=== PATIENT | female | born 1970 | race Caucasian/White ===

== ENCOUNTER 2016-05-27 16:27 | Emergency (ER) | payer MEDICARE ==
[2016-05-27 18:04] LABS: #Basophils 0.3 thou/uL (0.0-0.2); #Eosinphils 0.7 thou/uL (0.0-0.7); #Lymphocytes 3.5 thou/uL (1.20-3.40); #Neutrophils 3.7 thou/uL (1.40-6.50); %Basophils 2.9 % (0.0-1.0); %Eosinophils 7.4 % (0.0-10.0); %Lymphocytes 37.7 % (21.0-51.0); %Monocytes 11.4 % (0.0-10.0); Hematocrit 41.1 % (36.0-47.0); Mean Platelet Volume 6.8 fL (7.4-10.4); Red Blood Cell (RBC) Count 4.12 mill/uL (4.20-5.40); White Blood Cell (WBC) Count 9.1 thou/uL (4.8-10.8)
[2016-05-27 18:26] LABS: ALT (SGPT) 16 U/L (0-55); AST (SGOT) 27 U/L (5-34); Alkaline Phosphatase 75 U/L (40-150); Anion Gap 16 mmol/L (10-20); BUN (Urea Nitrogen) 10 mg/dL (7.0-18.7); Bilirubin, Total 0.3 mg/dL (0.2-1.2); Calc. Creatinine Clearance 0 mL/min (70-130); Calcium 9.5 mg/dL (7.8-10.44); Carbon Dioxide 26 mmol/L (22-29); Chloride 103 mmol/L (98-107); Estimated GFR-MDRD 65; Globulin 2.5 g/dL (2.4-3.5); Protein, Total 6.4 g/dL (6.0-8.3)
[2016-05-27 18:27] LABS: Methadone Not Detected (NotDetected); Methamphetamine Detected (NotDetected)
[2016-05-27 18:28] LABS: Acetaminophen Less than 3.0 mcg/mL (10.0-30.0); Salicylate Less than 5.0 mg/dL (15.0-30.0)
[2016-05-27] MEDS ORDERED: Ibuprofen 800 MG TAB ONE (19:18)
--- NOTE | 2016-05-27 21:15 | ERRECORD ---
[facility] EMERGENCY RECORD ADMIN (18:46 REZE) MERGE: Ambulance Mon May 27, 2016 16:16. HPI PSYCHIATRIC (17:50 JLOY) CHIEF COMPLAINT: Patient presents for evaluation of suicidal ideation, Patient presents for evaluation of Pt reports depression and SI. Sent over from [facility] via EMS. Initially they thought her BP was low but EMS got a normal reading. Pt admits to daily SI but won't share any details about whether she has a plan. Pt reports she doesn't think she will commit suicide but says she is under alot of stress with her at home. Pt reports she tripped and fell last pm and 'hurts all over'. Pt reports she has a history of chronic pain and is on disability and gets injections for chronic back pain. HISTORIAN: History provided by patient, Additional history obtained from EMS. LOCATION: Symptoms are generalized. ASSOCIATED WITH: No associated aggressive behavior, Associated with depression, Associated with family problems, No associated homicidal ideations, No suicide attempt, Associated with suicidal thoughts, constant. EXACERBATED BY: Patient's condition exacerbated by family stress, Patient's condition exacerbated by relationship stress. RELIEVED BY: Patient's condition relieved by nothing. RISK FACTORS: Suicide risk factors:, previous suicide attempts, previous inpatient psychiatric admissions. ROS (17:53 JLOY) CONSTITUTIONAL: Historian denies chills, denies fever. ENT: Historian reports rhinorrhea, denies sore throat. RESPIRATORY: Historian denies cough, denies shortness of breath. GI: Historian denies abdominal pain, denies diarrhea, reports nausea, denies vomiting. GENITOURINARY FEMALE: Historian denies dysuria, denies frequency, denies hematuria. MUSCULOSKELETAL: Historian reports back pain. SKIN: Historian denies rash, denies skin changes. NEUROLOGIC: Historian reports dizziness, denies headache, denies paralysis, reports paresthesias. chronic unchanged. PSYCHIATRIC: Historian reports depression, reports suicidal ideation. PAST MEDICAL HISTORY MEDICAL HISTORY: Notes: chronic back pain, Flu vaccine up to date, Tetanus immunization up to date, Pneumococcal vaccine not up to date, Past medical history includes neurological disease, migraine headaches.reviewed 05/27/16. (17:46 REZE) FEMALE SURGICAL HISTORY: states has an implanted tens &a-1R&a+25V*p+0X*[id number]*c202B*c15G*c2P*p-0X&a-25V&a+1R Name: Cristel Perez : 1970 F45 MedRec: [id number] AcctNum: [id number] Prepared: FriMay 27, 2016 22:10 by Interface Page 1 of 4 pMD [facility] EMERGENCY RECORD unit, Surgical history of hysterectomy.reviewed 05/27/16. (17:46 REZE) PSYCHIATRIC HISTORY: Psychiatric history includes history of suicidal ideations, No history of suicide attempts, Psychiatric history includes, bipolar disorder, depression.reviewed 05/27/16. (17:46 REZE) SOCIAL HISTORY: Patient currently uses tobacco, smokes cigarettes, daily, Patient smokes 1 pack per day, Patient currently uses tobacco, Patient smokes cigarettes, Patient drinks socially, twice a month, Patient denies drug use. (17:46 REZE) NOTES: Nursing records reviewed, Agree with nursing records. (17:54 JLOY) KNOWN ALLERGIES No Known Drug Allergies CURRENT MEDICATIONS SEROquel: TABLET : Strength - 100 mg : ORAL Patient Dose: 100 mg Oral once a day (at bedtime). (17:20 REZE) Cymbalta: CAPSULE,DELAYED RELEASE (ENTERIC COATED) : Strength - 60 mg : ORAL Patient Dose: 2 tab(s) Oral once a day (in the morning). (17:22 REZE) Depakote: TABLET, DELAYED RELEASE (ENTERIC COATED) : Strength - 500 mg : ORAL Patient Dose: 3 tab(s) Oral once a day (at bedtime). (17:22 REZE) naproxen: TABLET : Strength - 500 mg : ORAL Patient Dose: 1 tab(s) Oral 2 times a day. (17:22 REZE) Maxalt: TABLET : Strength - 10 mg : ORAL Patient Dose: 1 tab(s) Oral As Needed.X 2. (17:22 REZE) VITAL SIGNS (17:04 REZE) VITAL SIGNS: BP: 140/78, Pulse: 100, Resp: 20, Temp: 95.4 (Oral), Pain: 8, O2 sat: 98, Time: 05/27/2016 17:04. PHYSICAL EXAM CONSTITUTIONAL: Vital Signs Reviewed, Patient appears non toxic, Patient alert and oriented to person, place and time. (17:54 JLOY) EYES: Eye exam included findings of eyelids normal to inspection, Pupils equally round and reactive to light, Conjunctiva normal. (17:54 JLOY) ENT: Ear exam normal, external ear normal, tympanic membranes normal, Pharynx exam normal, Uvula exam normal, Tonsil exam normal, Mouth exam normal, mucous membranes moist. (17:54 JLOY) &a-1R&a+25V*p+0X*[id number]*c202B*c15G*c2P*p-0X&a-25V&a+1R Name: Cristel Perez : 1970 F45 MedRec: [id number] AcctNum: [id number] Prepared: FriMay 27, 2016 22:10 by Interface Page 2 of 4 D [facility] EMERGENCY RECORD NECK: Neck exam included findings of normal range of motion, Trachea midline, no cervical adenopathy. (17:54 JLOY) RESPIRATORY CHEST: Respiratory exam included findings of no respiratory distress, Breath sounds clear, No wheezing, No rales, No rhonchi, Chest exam included findings of chest movement symmetrical. (17:54 JLOY) CARDIOVASCULAR: Cardiovascular exam included findings of heart rate regular rate and rhythm, Heart sounds normal. (17:54 JLOY) ABDOMEN FEMALE: Abdominal exam included findings of abdomen nontender, Bowel sounds normal. (17:54 JLOY) BACK: Back exam included findings of normal inspection, range of motion normal, no tenderness. (17:54 JLOY) UPPER EXTREMITY: Upper extremity exam included findings of inspection normal, Radial pulse normal, no cyanosis, no clubbing, no edema. (17:54 JLOY) LOWER EXTREMITY: Lower extremity exam included findings of inspection normal, Pedal pulse normal, no edema, no calf tenderness. (17:54 JLOY) NEURO: Neuro exam findings include patient oriented to person, place and time, Speech normal, Juan Carlos coma scale 15. (17:54 JLOY) SKIN: Skin exam included findings of skin warm, dry, and normal in color. (17:54 JLOY) Multiple apparent bug bites on the lower extremities. One on her left leg near the knee with some mild swelling and redness. No fluctuance. (22:00 JLOY) PSYCHIATRIC: Affect, colorful, Suicidal ideations present. (17:54 [facility]) MEDICATION ADMINISTRATION SUMMARY Drug Name: ibuprofen, Dose Ordered: 800 mg, Route: Oral, Status: Given, Time: 19:21 05/27/2016, Detailed record available in Medication Service section. PROBLEM LIST No recorded problems DIAGNOSIS (20:59 [facility]) FINAL: PRIMARY: Major depression. PRESCRIPTION (22:00 [facility]) Keflex: CAPSULE : 500 mg : ORAL : Quantity: 500 Unit: mg Route: ORAL Schedule: 2 times a day Dispense: 7 days May substitute. Refills: No Refills . NOTES: No Refills. DISPOSITION PATIENT: Disposition Type: Transfer, Disposition: [facility]. (20:59 [facility]) Disposition Type: Discharge, Disposition: *Discharge Home. (21:38 [facility]) &a-1R&a+25V*p+0X*[id number]*c202B*c15G*c2P*p-0X&a-25V&a+1R Name: Cristel Perez : 1970 5 MedRec: [id number] AcctNum: [id number] Prepared: FriMay 27, 2016 22:10 by Interface Page 3 of 4 pMD [facility] EMERGENCY RECORD Patient left the department. (22:04 MBOS) Goodwin: PRADEEP=MD Tj, Gabriel GÓMEZ=VICKEY Machuca, Cayla KIRKPATRICK=VICKEY Johns, Pinky &a-1R&a+25V*p+0X*[id number]*c202B*c15G*c2P*p-0X&a-25V&a+1R Name: Cristel Perez : 1970 5 MedRec: [id number] AcctNum: [id number] Prepared: FriMay 27, 2016 22:10 by Interface Page 4 of 4 pMD MTDD
--- NOTE | 2016-05-27 21:21 | PICIS ---
[facility] EMERGENCY RECORD ADMIN MERGE: Ambulance FriMay 27, 2016 16:16. (18:46 REZE) TRIAGE (17:18 REZE) PATIENT: NAME: Cristel Perez, AGE: 45, GENDER: female, : Fri1970, TIME OF GREET: FriMay 27, 2016 16:28, PREFERRED LANGUAGE: Ukrainian, ETHNICITY: Not or , ECODE BILLING MAP: [facility], SSN: [id number], Zip Code: [address], KG WEIGHT: [phone], PHONE: , , , PERSON ID: [id number], PCP: MD Ewing Katherine. (17:18 REZE) COMPLAINT: SUICIDAL IDEATION. (17:18 REZE) ADMISSION: URGENCY: 3 Urgent, ADMISSION SOURCE: Other, TRANSPORT: AMBULANCE - [facility], BED: TRIAGE. (17:18 REZE) ASSESSMENT: Assessment: states she went to [facility] visit today and b/p was low so [facility] called ems, Symptoms began 2 hours ago. (17:46 REZE) PAIN: Patient complains of pain described as, aching, Location generalized all over . states she has chronic pain and fell last night. (17:46 REZE) SIRS SCORING: Heart Rate 55-109 (0), Temp range 93.1-96.7 (1), respiratory rate 12-24 (0), Mental Status altered: no (0), Total SIRS Score 1, Infection or Suspected Infection: No. (17:46 REZE) TRIAGE SCREENING: Suicide risk, actively suicidal, Charge nurse notified, suicide precaution initiated, Patient denies presence of domestic violence. (17:46 REZE) LMP: LMP: Hysterectomy. (17:46 REZE) PROVIDERS: TRIAGE NURSE: Pinky Johns RN. (17:18 REZE) VITAL SIGNS: BP 140/78, Pulse 100, Resp 20, Temp 95.4, (Oral), Pain 8, O2 Sat 98, Time 05/27/2016 17:04. (17:04 REZE) PREVIOUS VISIT ALLERGIES: No Known Drug Allergies. (17:18 REZE) No Known Drug Allergies. (17:46 REZE) KNOWN ALLERGIES No Known Drug Allergies CURRENT MEDICATIONS SEROquel: TABLET : Strength - 100 mg : ORAL Patient Dose: 100 mg Oral once a day (at bedtime). (17:20 REZE) Cymbalta: CAPSULE,DELAYED RELEASE (ENTERIC COATED) : Strength - 60 mg : ORAL Patient Dose: 2 tab(s) Oral once a day (in the morning). (17:22 REZE) Depakote: TABLET, DELAYED RELEASE (ENTERIC COATED) : Strength - 500 mg : ORAL Patient Dose: 3 tab(s) Oral once a day (at bedtime). (17:22 &a-1R&a+25V*p+0X*j0949Q*c202B*c15G*c2P*p-0X&a-25V&a+1R Name: Cristel Perez : 1970 F45 MedRec: [id number] AcctNum: [id number] Prepared: FriMay 27, 2016 22:10 by Interface Page 1 of 10 pMD [facility] EMERGENCY RECORD REZE) naproxen: TABLET : Strength - 500 mg : ORAL Patient Dose: 1 tab(s) Oral 2 times a day. (17:22 REZE) Maxalt: TABLET : Strength - 10 mg : ORAL Patient Dose: 1 tab(s) Oral As Needed.X 2. (17:22 REZE) VITAL SIGNS (17:04 REZE) VITAL SIGNS: BP: 140/78, Pulse: 100, Resp: 20, Temp: 95.4 (Oral), Pain: 8, O2 sat: 98, Time: 05/27/2016 17:04. NURSING ASSESSMENT: PSYCH/SOCIAL (18:58 REZE) CONSTITUTIONAL: Patient arrives, via [facility], Gait steady, History obtained from patient, Patient appears, in distress due to pain, Patient cooperative, Patient alert, Oriented to person, place and time, Skin warm, Skin dry, Skin normal in color, Mucous membranes pink, Mucous membranes moist, Patient is well-groomed, Patient complains of states was at [facility] today and blood pressure was low so ems was called . states she has suicidal ideations. PSYCH/SOCIAL: Psychiatric/social assessment findings include affect, crying, no complaint of visual hallucinations, no complaint of auditory hallucinations, no complaint of tactile hallucinations, Suicidal ideations present, patient states she has no plan. states she just thinks of harming herself but unable to elaborate on it. states she could never do anything to herself because she has a 14 y/o at home., no homicidal ideations. SUICIDE RISK ASSESSMENT TOOL: Suicide Risk Assessment findings: Mental State (High risk):, severe depression, states she wish will just leave her and child alone, Suicide Attempts or Suicidal Thoughts (High risk):, continual suicidal thoughts, states she thinks about it all the time but no specific paln, Substance Disorder (Low risk):, no use of substances, Suicide Risk: Low:, charge nurse notified, suicide precautions initiated, This person's risk level in not highly changeable, No, there are no factors that indicate a level of uncertainty in this risk assessment, indicating an assessment confidence. SAFETY: Side rails up, Cart/Stretcher in lowest position. NURSING PROCEDURE: COMMUNICATIONS COMMUNICATIONS: Psychiatric screening consult, contacted at [phone], Name of screener [facility] hotline, called for a screening evaluation. (19:11 MBOS) Psychiatric screening consult, Name of screener Otto from [facility], Arrived in department at: 1925, Other consult at bedside, from [facility], Roll Carrier's name: Otto. (19:35 MBOS) SAFETY: Side rails up, Cart/Stretcher in lowest position, Call &a-1R&a+25V*p+0X*h1829J*c202B*c15G*c2P*p-0X&a-25V&a+1R Name: Cristel Perez : 1970 F45 MedRec: [id number] AcctNum: [id number] Prepared: FriMay 27, 2016 22:10 by Interface Page 2 of 10 pMD [facility] EMERGENCY RECORD light within reach, Hospital ID band on, Patient in view of the nursing station, Suicide precautions maintained. (19:11 MBOS) Side rails up, Cart/Stretcher in lowest position, Call light within reach, Hospital ID band on, Suicide precautions maintained. (19:35 MBOS) NURSING PROCEDURE: DISCHARGE NOTE (22:01 MBOS) DISCHARGE: Patient discharged to home, ambulating without assistance, friend driving, accompanied by friend, Summary of Care printed/ provided, Discharge instructions given to patient, Simple or moderate discharge teaching performed, Prescriptions given and instructions on side effects given, Above person(s) verbalized understanding of discharge instructions and follow-up care, Patient treated and evaluated by physician, Notes: Patient instructed to go directly to [facility]. NURSING PROCEDURE: LAB DRAW (17:55 REZE) PATIENT IDENTIFIER: Patient actively involved in identification process, Patient's identity verified by patient stating name, Patient's identity verified by patient stating date. LAB DRAW: Lab draw indicated for obtaining specimens for evaluation, Initial lab draw performed, by venipuncture, from right hand, in one attempt, Lab specimens labeled in the presence of the patient and sent to lab. FOLLOW-UP: After procedure, dressing applied to site, After procedure, no swelling at site, After procedure, no active bleeding from site. SAFETY: Side rails up, Cart/Stretcher in lowest position. NURSING PROCEDURE: NURSE NOTES NURSES NOTES: Notes: Simeon Arrington may be reached @ [phone]. Pt requesting NOT to see him @ this time; if she changes her mind, he may be given information/dispo details. (18:38 [facility]) Shift change report given, to OMAR CAMACHO RN, Provided opportunity to answer questions. (19:13 REZE) Patient assisted to bathroom with steady gait, Patient in no apparent distress, Patient resting quietly. (19:22 MBOS) Patient is improving, Patient in no apparent distress, Patient resting quietly, Notes: Patient awake in bed reading a book. (21:05 MBOS) NURSING PROCEDURE: URINE COLLECTION (17:50 REZE) PATIENT IDENTIFIER: Patient actively involved in identification process, Patient's identity verified by patient stating name, Patient's identity verified by patient stating date. URINE COLLECTION FEMALE: Urine collected by void, output amount (mL) 60 ml, urine yellow in color, and clear, Specimen labeled in the presence of the patient and sent to lab. NOTES: Patient tolerated procedure well. &a-1R&a+25V*p+0X*y3014P*c202B*c15G*c2P*p-0X&a-25V&a+1R Name: Cristel Perez : 1970 F45 MedRec: [id number] AcctNum: [id number] Prepared: FriMay 27, 2016 22:10 by Interface Page 3 of 10 D [facility] EMERGENCY RECORD ORDER DETAILS Order Name: CBC with Differential, Status: Active, Time: 17:28 05/27/2016, User: PRADEEP, - Ordered for: MD Spencre Joshua, - Entered by: MD Spencer Joshua - Berto May 27, 2016 17:28, - Quantity: 1, Order Name: Comprehensive Metabolic Panel, Status: Active, Time: 17:28 05/27/2016, User: PRADEEP, - Ordered for: MD Spencer Joshua, - Entered by: MD Spencer Joshua - Berto May 27, 2016 17:28, - Quantity: 1, Order Name: Drug Screen, Serum, Status: Active, Time: 17:28 05/27/2016, User: PRADEEP, - Ordered for: MD Spencer Joshua, - Entered by: MD Spencer Joshua - Berto May 27, 2016 17:28, - Quantity: 1, Order Name: Drug Screen, Urine, Status: Active, Time: 17:28 05/27/2016, User: PRADEEP, - Ordered for: MD Spencer Joshua, - Entered by: MD Spencer Joshua - Mon May 27, 2016 17:28, - Quantity: 1, Order Name: Test, Urine (BHCG), Status: Active, Time: 17:28 05/27/2016, User: PRADEEP, - Ordered for: MD Spencer Joshua, - Entered by: MD Spencer Joshua - Mon May 27, 2016 17:28, - Quantity: 1, Order Name: Thyroid Stimulating Hormone, Status: Active, Time: 17:28 05/27/2016, User: PRADEEP, - Ordered for: MD Spencer Joshua, - Entered by: MD Spencer Joshua - Mon May 27, 2016 17:28, - Quantity: 1, Order Name: Urinalysis w/ Rflx Microscopic, Status: Active, Time: 17:28 05/27/2016, User: PRADEEP, - Ordered for: MD Spencer Joshua, - Entered by: MD Spencer Joshua - FriMay 27, 2016 17:28, - Quantity: 1. MEDICATION ADMINISTRATION SUMMARY Drug Name: ibuprofen, Dose Ordered: 800 mg, Route: Oral, Status: Given, Time: 19:21 05/27/2016, Detailed record available in Medication Service section. MEDICATION SERVICE (19:21 SUSI) ibuprofen: Order: ibuprofen - Dose: 800 mg : Oral Ordered by: Gabriel Spencer MD Entered by: Gabriel Spencer MD FriMay 27, 2016 19:08 , Acknowledged by: Pinky Johns RN FriMay 27, 2016 19:10 &a-1R&a+25V*p+0X*x8288V*c202B*c15G*c2P*p-0X&a-25V&a+1R Name: Cristel Perez : 1970 F45 MedRec: [id number] AcctNum: [id number] Prepared: FriMay 27, 2016 22:10 by Interface Page 4 of 10 pMD [facility] EMERGENCY RECORD Documented as given by: Cayla Machuca RN FriMay 27, 2016 19:21 Patient, Medication, Dose, Route and Time verified prior to administration. Patient appears Awake and alert- acceptable, Correct patient, time, route, dose and medication confirmed prior to administration, Patient advised of actions and side-effects prior to administration, Allergies confirmed and medications reviewed prior to administration, Patient in position of comfort, Side rails up, Cart in lowest position. HPI PSYCHIATRIC (17:50 [facility]) CHIEF COMPLAINT: Patient presents for evaluation of suicidal ideation, Patient presents for evaluation of Pt reports depression and SI. Sent over from [facility] via EMS. Initially they thought her BP was low but EMS got a normal reading. Pt admits to daily SI but won't share any details about whether she has a plan. Pt reports she doesn't think she will commit suicide but says she is under alot of stress with her at home. Pt reports she tripped and fell last pm and 'hurts all over'. Pt reports she has a history of chronic pain and is on disability and gets injections for chronic back pain. HISTORIAN: History provided by patient, Additional history obtained from EMS. LOCATION: Symptoms are generalized. ASSOCIATED WITH: No associated aggressive behavior, Associated with depression, Associated with family problems, No associated homicidal ideations, No suicide attempt, Associated with suicidal thoughts, constant. EXACERBATED BY: Patient's condition exacerbated by family stress, Patient's condition exacerbated by relationship stress. RELIEVED BY: Patient's condition relieved by nothing. RISK FACTORS: Suicide risk factors:, previous suicide attempts, previous inpatient psychiatric admissions. ROS (17:53 JLOY) CONSTITUTIONAL: Historian denies chills, denies fever. ENT: Historian reports rhinorrhea, denies sore throat. RESPIRATORY: Historian denies cough, denies shortness of breath. GI: Historian denies abdominal pain, denies diarrhea, reports nausea, denies vomiting. GENITOURINARY FEMALE: Historian denies dysuria, denies frequency, denies hematuria. MUSCULOSKELETAL: Historian reports back pain. SKIN: Historian denies rash, denies skin changes. NEUROLOGIC: Historian reports dizziness, denies headache, denies paralysis, reports paresthesias. chronic unchanged. PSYCHIATRIC: Historian reports depression, reports suicidal ideation. &a-1R&a+25V*p+0X*r1626Q*c202B*c15G*c2P*p-0X&a-25V&a+1R Name: Cristel Perez : 1970 F45 MedRec: [id number] AcctNum: [id number] Prepared: FriMay 27, 2016 22:10 by Interface Page 5 of 10 pMD [facility] EMERGENCY RECORD PAST MEDICAL HISTORY MEDICAL HISTORY: Notes: chronic back pain, Flu vaccine up to date, Tetanus immunization up to date, Pneumococcal vaccine not up to date, Past medical history includes neurological disease, migraine headaches.reviewed 05/27/16. (17:46 REZE) FEMALE SURGICAL HISTORY: states has an implanted tens unit, Surgical history of hysterectomy.reviewed 05/27/16. (17:46 REZE) PSYCHIATRIC HISTORY: Psychiatric history includes history of suicidal ideations, No history of suicide attempts, Psychiatric history includes, bipolar disorder, depression.reviewed 05/27/16. (17:46 REZE) SOCIAL HISTORY: Patient currently uses tobacco, smokes cigarettes, daily, Patient smokes 1 pack per day, Patient currently uses tobacco, Patient smokes cigarettes, Patient drinks socially, twice a month, Patient denies drug use. (17:46 REZE) NOTES: Nursing records reviewed, Agree with nursing records. (17:54 JLOY) PHYSICAL EXAM CONSTITUTIONAL: Vital Signs Reviewed, Patient appears non toxic, Patient alert and oriented to person, place and time. (17:54 JLOY) EYES: Eye exam included findings of eyelids normal to inspection, Pupils equally round and reactive to light, Conjunctiva normal. (17:54 JLOY) ENT: Ear exam normal, external ear normal, tympanic membranes normal, Pharynx exam normal, Uvula exam normal, Tonsil exam normal, Mouth exam normal, mucous membranes moist. (17:54 JLOY) NECK: Neck exam included findings of normal range of motion, Trachea midline, no cervical adenopathy. (17:54 JLOY) RESPIRATORY CHEST: Respiratory exam included findings of no respiratory distress, Breath sounds clear, No wheezing, No rales, No rhonchi, Chest exam included findings of chest movement symmetrical. (17:54 JLOY) CARDIOVASCULAR: Cardiovascular exam included findings of heart rate regular rate and rhythm, Heart sounds normal. (17:54 JLOY) ABDOMEN FEMALE: Abdominal exam included findings of abdomen nontender, Bowel sounds normal. (17:54 JLOY) BACK: Back exam included findings of normal inspection, range of motion normal, no tenderness. (17:54 JLOY) UPPER EXTREMITY: Upper extremity exam included findings of inspection normal, Radial pulse normal, no cyanosis, no clubbing, no edema. (17:54 JLOY) LOWER EXTREMITY: Lower extremity exam included findings of inspection normal, Pedal pulse normal, no edema, no calf tenderness. (17:54 JLOY) NEURO: Neuro exam findings include patient oriented to person, place and time, Speech normal, Juan Carlos coma scale 15. (17:54 JLOY) &a-1R&a+25V*p+0X*p4774E*c202B*c15G*c2P*p-0X&a-25V&a+1R Name: Cristel Perez : 1970 F45 MedRec: [id number] AcctNum: [id number] Prepared: FriMay 27, 2016 22:10 by Interface Page 6 of 10 pMD [facility] EMERGENCY RECORD SKIN: Skin exam included findings of skin warm, dry, and normal in color. (17:54 JLOY) Multiple apparent bug bites on the lower extremities. One on her left leg near the knee with some mild swelling and redness. No fluctuance. (22:00 JLOY) PSYCHIATRIC: Affect, colorful, Suicidal ideations present. (17:54 JLOY) EVENTS TRANSFER: Triage to Emergency Triage. (FriMay 27, 2016 17:18 REZE) Emergency Triage to Emergency Room -02. (17:22 REZE) Removed from Emergency Emergency Room -02. (22:04 MBOS) PROBLEM LIST No recorded problems DIAGNOSIS (20:59 JLOY) FINAL: PRIMARY: Major depression. DISPOSITION PATIENT: Disposition Type: Transfer, Disposition: [facility]. (20:59 JLOY) Disposition Type: Discharge, Disposition: *Discharge Home. (21:38 JLOY) Patient left the department. (22:04 MBOS) INSTRUCTION (21:39 JLOY) DISCHARGE: DEPRESSION. FOLLOWUP: MD Ewing Katherine, [facility], [address] [place] [address] [place] [address], , Follow up with Primary Care Physician in 7-10 days. SPECIAL: Go as soon as possible to the [facility] for admission. PRESCRIPTION (22:00 JLOY) Keflex: CAPSULE : 500 mg : ORAL : Quantity: 500 Unit: mg Route: ORAL Schedule: 2 times a day Dispense: 7 days May substitute. Refills: No Refills . NOTES: No Refills. IMAGING *DISCHARGE INSTRUCTIONS RECEIPT: Image captured from scanner. (22:02 MBOS) [facility] DOCUMENTATION: Image captured from scanner. (22:02 MBOS) Page 2 added. Image captured from scanner. (22:03 MBOS) Page 3 added. Image captured from scanner. (22:03 MBOS) Page 4 added. Image captured from scanner. (22:03 MBOS) Page 5 added. Image captured from scanner. (22:03 MBOS) Page 6 added. Image captured from scanner. (22:03 MBOS) Page 7 added. Image captured from scanner. (22:03 MBOS) &a-1R&a+25V*p+0X*w9367G*c202B*c15G*c2P*p-0X&a-25V&a+1R Name: Cristel Perez : 1970 F45 MedRec: [id number] AcctNum: [id number] Prepared: FriMay 27, 2016 22:10 by Interface Page 7 of 10 pMD [facility] EMERGENCY RECORD Page 8 added. Image captured from scanner. (22:03 MBOS) *SUPPLY CHARGE SHEET: Image captured from scanner. (22:03 MBOS) ADMIN DIGITAL SIGNATURE: MD Spencer Joshua. (20:59 JLOY) MD Spencer Joshua. (21:48 JLOY) MD Spencer Joshua. (22:04 JLOY) RESULTS (18:36 JLOY) LABORATORY: Drug Screen, Urine Collection DT: FriMay 27, 2016 18:21, THC/Cannabinoid Screen Not Detected , Range (NotDetected), Phencyclidine (PCP) Not Detected , Range (NotDetected), Cocaine Metabolite Screen Not Detected , Range (NotDetected), *Methamphetamine Detected - H , Range (NotDetected), *Opiate Screen Detected - H , Range (NotDetected), *Amphetamine Detected - H , Range (NotDetected), Benzodiazepine Screen Not Detected , Range (NotDetected), Tricyclic Screen Not Detected , Range (NotDetected), Methadone Not Detected , Range (NotDetected), Barbiturates Screen Not Detected , Range (NotDetected), Oxycodone Screen Not Detected , Range (NotDetected), Propoxyphene Screen Not Detected , Range (NotDetected), Drug Screen Cutoff , Range (), The MedTox Profile-V Panel for Qualitative Drugs of Abuse assays are for, presumptive screening testing only. The drug class and detection limits, are as follows: Drug Class Detection Limit Amphetamine , 500 ng/mL* Barbiturates 200 ng/mL , Benzodiazepines 150 ng/mL* Cocaine 150 ng/mL*, Methamphetamine 500 ng/mL* Methadone 200, ng/mL* Opiates 100 ng/mL* Oxycodone , 100 ng/mL PCP 25 ng/mL Propoxyphene , 300 ng/mL Tricyclic Antidepressants 300 ng/mL Cannabinoids (THC) , 50 ng/mL Tests which yield a presumptive positive result must be , tested using a more specific alternate chemical method in order to obtain, a confirmed analytical result. Additional confirmation and identification, may be ordered on a routine basis, if desired. Presumptive positive urines, are held for two weeks. . Drug Screen, Blood Collection DT: FriMay 27, 2016 18:21, &a-1R&a+25V*p+0X*h0266F*c202B*c15G*c2P*p-0X&a-25V&a+1R Name: Cristel Perez : 1970 F45 MedRec: [id number] AcctNum: [id number] Prepared: FriMay 27, 2016 22:10 by Interface Page 8 of 10 pMD [facility] EMERGENCY RECORD *Acetaminophen Less than 3.0 - L mcg/mL, Range (10.0-30.0), Therapeutic Range: 10.0 - 30.0 ug/mL Toxic Range: Possible, toxicity: 150 - 200 ug/mL Probable toxicity: Greater than 200, ug/mL *IMPORTANT TESTING INFORMATION* The half-life of NAC is 2, hours. The total NAC clearance is 5.6 hours for adults and 11 hours for, Newborns. Testing acetaminophen levels prior to a reasonable time frame, for clearance can cause falsely decreased acetaminophen levels. , Alcohol Less than 10 mg/dL, Range (Less than 10), The pharmacological response to blood alcohol levels may vary from, individual to individual. Negative: Less than 10, mg/dL Toxic: 50 - 100 mg/dL , Depression of TRIP FOLLOWER: Greater than 100 mg/dL , Fatalities reported: Greater than 400 mg/dL , *Salicylate Less than 5.0 - L mg/dL, Range (15.0-30.0). Comprehensive Metabolic Panel Collection DT: FriMay 27, 2016 18:21, Sodium 141 mmol/L, Range (136-145), Potassium 3.8 mmol/L, Range (3.5-5.1), Chloride 103 mmol/L, Range (98-107), Carbon Dioxide 26 mmol/L, Range (22-29), Anion Gap 16 mmol/L, Range (10-20), BUN (Urea Nitrogen) 10 mg/dL, Range (7.0-18.7), Creatinine 0.93 mg/dL, Range (0.6-1.1), Estimated GFR-MDRD 65 , Reference Range for Estimated GFR: Greater than 90, mL/min/1.73 m2 NOTE: The MDRD equation has not been validated for use, with the elderly (over 70 years of age), women, patients with, serious comorbid condition or persons with extremes of body size, muscle, mass, or nutritional status. , Glucose 95 mg/dL, Range (70-105), Calcium 9.5 mg/dL, Range (7.8-10.44), Bilirubin, Total 0.3 mg/dL, Range (0.2-1.2), Protein, Total 6.4 g/dL, Range (6.0-8.3), NOTE: Plasma values are generally 0.3 to 0.5 g/dL higher than serum values, due to the presence of fibrinogen. , Albumin 3.9 g/dL, Range (3.5-5.0), Globulin 2.5 g/dL, Range (2.4-3.5), &a-1R&a+25V*p+0X*j0493L*c202B*c15G*c2P*p-0X&a-25V&a+1R Name: Cristel Perez Geoffrey : 1970 F45 MedRec: [id number] AcctNum: [id number] Prepared: FriMay 27, 2016 22:10 by Interface Page 9 of 10 pMD [facility] EMERGENCY RECORD Alb/Glob Ratio 1.6 g/dL, Range (1.2-2.2), Alkaline Phosphatase 75 U/L, Range (40-150), AST (SGOT) 27 U/L, Range (5-34), ALT (SGPT) 16 U/L, Range (0-55). Test, Urine (BHCG) Collection DT: FriMay 27, 2016 18:21, Test - Urine (BHCG) NEGATIVE , Range (NEGATIVE), Method of sensitivity- Indeterminant: results should be repeated, after 48 hours. Positive: results may be detected as early as 4-5 days before a first missed menses. Elimination of BHCG-, Elimination following first trimester D&C: 29-44 Days , Elimination following term : 8-24 Days , Specific [place] 1.011 , Range (1.002-1.036), A dilute urine specimen may, not contain inbound sales representative levels of hCG. If is still, suspected, a first morning urine specimen OR a random blood specimen should, be obtained from the patient 48-72 hours later and re-tested. , . CBC with Differential Collection DT: FriMay 27, 2016 18:03, White Blood Cell (WBC) Count 9.1 thou/uL, Range (4.8-10.8), *Red Blood Cell (RBC) Count 4.12 - L mill/uL, Range (4.20-5.40), Hemoglobin 12.9 g/dL, Range (12.0-16.0), Hematocrit 41.1 %, Range (36.0-47.0), *Mean Corpuscular Volume 99.7 - H fl, Range (81.0-99.0), *Mean Corpuscular Hemoglobin 31.3 - H pg, Range (27.0-31.0), *Mean Corpuscular HGB CONC 31.4 - L g/dL, Range (32.0-36.0), RBC Distribution Width 13.3 %, Range (11.5-14.5), Platelet Count 355 thou/uL, Range (130-400), *Mean Platelet Volume 6.8 - L fL, Range (7.4-10.4), *%Neutrophils 40.6 - L %, Range (42.0-75.0), %Lymphocytes 37.7 %, Range (21.0-51.0), *%Monocytes 11.4 - H %, Range (0.0-10.0), %Eosinophils 7.4 %, Range (0.0-10.0), *%Basophils 2.9 - H %, Range (0.0-1.0), #Neutrophils 3.7 thou/uL, Range (1.40-6.50), *#Lymphocytes 3.5 - H thou/uL, Range (1.20-3.40), *#Monocytes 1.0 - H thou/uL, Range (0.11-0.59), #Eosinphils 0.7 thou/uL, Range (0.0-0.7), *#Basophils 0.3 - H thou/uL, Range (0.0-0.2). Goodwin: PRADEEP=MD Tj, Gabriel GÓMEZ=VICKEY Machuca, Cayla KIRKPATRICK=VICKEY Johns, Pinky [facility]=VICKEY López, Erendira &a-1R&a+25V*p+0X*g0801V*c202B*c15G*c2P*p-0X&a-25V&a+1R Name: Cristel Perez : 1970 F45 MedRec: [id number] AcctNum: [id number] Prepared: FriMay 27, 2016 22:10 by Interface Page 10 of 10 pMD [facility] MEDICATION RECONCILIATION You were seen in the Emergency Department on: FriMay 27, 2016 KNOWN ALLERGIES No Known Drug Allergies MEDICATIONS GIVEN WHILE IN THE EMERGENCY DEPARTMENT ibuprofen - Dose: 800 milligram(s) : Oral HOME MEDICATIONS CONTINUE PRESCRIBED Cymbalta : CAPSULE,DELAYED RELEASE (ENTERIC COATED) : Strength - 60 mg : ORAL Continue as prescribed Patient had been takin tab(s) Oral once a day (in the morning). Depakote : TABLET, DELAYED RELEASE (ENTERIC COATED) : Strength - 500 mg : ORAL Continue as prescribed Patient had been takin tab(s) Oral once a day (at bedtime). Maxalt : TABLET : Strength - 10 mg : ORAL Continue as prescribed Patient had been takin tab(s) Oral As Needed. Comment: X 2. naproxen : TABLET : Strength - 500 mg : ORAL Continue as prescribed Patient had been takin tab(s) Oral 2 times a day. SEROquel : TABLET : Strength - 100 mg : ORAL Continue as prescribed Patient had been takin mg Oral once a day (at bedtime). PRESCRIPTIONS (1) &a-1R&a+25V*p+0X*[id number]*c202B*c15G*c2P*p-0X&a-25V&a+1R Name: Cristel Perez : 1970 [id number] MedRec: [id number] AcctNum: [id number] Prepared: FriMay 27, 2016 22:10 by Interface pMD DAVE
== END 2016-05-27 21:58 | disposition home or self-care (01) ==
LOC: NAV ERS 16:27
DX: F32.9 Major depressive disorder, single episode, unspecified (principal); G43.909 Migraine, unspecified, not intractable, without status migrainosus; F17.210 Nicotine dependence, cigarettes, uncomplicated; Z79.899 Other long term (current) drug therapy
CPT/HCPCS: 80053; 80306; 80307; 81025; 84443; 85025; 99285

== ENCOUNTER 2016-09-26 21:03 | Emergency (ER) | payer MEDICARE ==
[2016-09-26] MEDS ORDERED: Prochlorperazine 10 MG/2 ML VIAL ONE (21:48)
[2016-09-26] MEDS ORDERED: diphenhydrAMINE HCl 50 MG/ML 1 ML VIAL ONE (21:48)
[2016-09-26] MEDS ORDERED: Ketorolac Tromethamine 60 MG/2 ML VIAL ONE (22:11)
== END 2016-09-26 22:25 | disposition home or self-care (01) ==
LOC: NAV ERS 21:03
DX: R51 Headache (principal); M25.552 Pain in left hip; M25.551 Pain in right hip; M54.5 Low back pain; F31.9 Bipolar disorder, unspecified; F17.210 Nicotine dependence, cigarettes, uncomplicated; Z79.899 Other long term (current) drug therapy
CPT/HCPCS: 96372; J0780; J1200; J1885